=== PATIENT | female | born 1960 | race Caucasian/White ===

== ENCOUNTER → 2017-11-26 | Outpatient (CLI) | payer OTHER ==
[2017-11-26 10:27] LABS: Basophils % (A) 1 %; Eosinophils # (A) 0.2 k/uL (0-0.7); Eosinophils % (A) 5 %; HCT 43.1 % (34.0-46.0); HGB 13.8 gm/dL (11.4-16.0); Lymphocytes # (A) 1.9 k/uL (1.0-4.8); Lymphocytes % (A) 36 %; MCHC 32.1 g/dL (31.0-37.0); MCV 93.5 fL (80.0-100.0); Monocytes # (A) 0.4 k/uL (0-1.0); Monocytes % (A) 7 %; Neutrophils # (A) 2.6 k/uL (1.3-7.7); Neutrophils % (A) 48 %; Platelet Count 293 k/uL (150-450); RBC 4.61 m/uL (3.80-5.40); RDW 13.4 % (11.5-15.5); WBC 5.3 k/uL (3.8-10.6)
== END | disposition home or self-care (01) ==
LOC: LABPAT 10:05
PROVIDERS: ATTEND Obstetrics & Gynecology Obstetrics
DX: Z01.812 Encounter for preprocedural laboratory examination (principal); N95.0 Postmenopausal bleeding
CPT/HCPCS: 36415; 85025

== ENCOUNTER 2017-12-13 08:37 | Day surgery (SDC) | payer OTHER ==
[2017-12-08 17:40] VITALS: BMI 27.4
[~2017-12-13 08:37] MED LIST: DEXAMETHASONE SOD PHOSPHATE 10 MG/ML 1 ML VIAL IV ONE; HYDROmorphone 0.5 MG/0.5 ML SYRINGE IVP PRN; LACTATED RINGERS 1,000 ML IV SCH; LIDOCAINE 1% 20 ML VIAL (10MG/ML) FOR IV START INTRADERMA PRN; MIDAZOLAM 2 MG/2 ML VIAL IV PRN; ONDANSETRON 4 MG/2 ML VIAL IVP ONE; Pre Op ABX Message 1 EACH MISC MISCELLANE ONE; SCOPOLAMINE 1.5MG/72HR PATCH TRANSDERM ONE
[2017-12-13] MEDS: ACETAMINOPHEN IV (For NPO) 1,000 MG in EMPTY BAG 1 BAG IVPB ONE ×2 (10:18→10:24)
[2017-12-13] MEDS ORDERED: PROPOFOL 10 MG/ML 20 ML VIAL IV ONE (11:18)
[2017-12-13] MEDS ORDERED: KETOROLAC 30 MG/ML 1 ML VIAL ONE (11:18)
[2017-12-13] MEDS ORDERED: fentaNYL (PF) 50 MCG/ML 2 ML AMP ONE (11:18)
[2017-12-13] MEDS ORDERED: LIDOCAINE 1% INJ 10MG/ML (20 ML MDV) ONE (11:18)
[2017-12-13] MEDS ORDERED: MIDAZOLAM 2 MG/2 ML VIAL ONE (11:18)
--- NOTE | 2017-12-13 11:57 | P.OP ---
Date of Procedure: 12/13/17 Preoperative Diagnosis: Postmenopausal bleeding, inability to tolerate exam in the office secondary to atrophic vaginal tissue Postoperative Diagnosis: Same Procedure(s) Performed: Exam under anesthesia, Pap smear obtained, hysteroscopy, dilation and curettage Anesthesia: MAC Surgeon: Anais Ponce Estimated Blood Loss (ml): 10 IV fluids (ml): 200 Urine output (ml): 50 Pathology: other (Endometrial curettings) Condition: stable Disposition: PACU Indications for Procedure: Postmenopausal bleeding Operative Findings: Proliferative endometrium Description of Procedure: Patient was seen in the preoperative area and informed consent was obtained risks were reviewed patient stated understanding and wished to proceed. Patient was taken to back to the operating suite where general anesthesia was obtained without difficulty by the anesthesia department. She was then prepped and draped in the normal sterile fashion in the dorsal lithotomy position. A retrobulbar catheter was then used to drain the bladder clear yellow urine. Speculum was then used to visualize the cervix which was grasped with a single- tooth tenaculum. The endocervical canal was dilated after a Pap smear was obtained. The cervix was dilated to approximately 15-Kittitian. Hysteroscope was placed through the cervix and toward the endometrium a proliferative endometrium was noted. The hysteroscope was removed after pictures were taken under sharp curettage was performed until gritty texture was noted in all 4 quadrants of the endometrial cavity. The specimen was then sent to pathology for analysis. The single-tooth tenaculum was taken off of the anterior lip of the cervix and hemostasis was appreciated. Patient tolerated procedure well all counts were correct 2 patient to the recovery room awake and in stable condition
[2017-12-13] MEDS ORDERED: LACTATED RINGERS 1,000 ML IV ONE (12:01)
[2017-12-13 12:13] VITALS: RESP 16; TEMP 97.3
[2017-12-13 13:21] VITALS: BP 133/83; PULSE 64
== END 2017-12-13 14:07 | disposition home or self-care (01) ==
LOC: OR 08:37
PROVIDERS: ATTEND Obstetrics & Gynecology Obstetrics
DX: N84.0 Polyp of corpus uteri (principal); K21.9 Gastro-esophageal reflux disease without esophagitis; Z79.51 Long term (current) use of inhaled steroids; Z79.899 Other long term (current) drug therapy; Z88.1 Allergy status to other antibiotic agents; Z88.2 Allergy status to sulfonamides; Z91.09 Other allergy status, other than to drugs and biological substances
CPT/HCPCS: 88305; 58558; J2250; J1100; J2405; J2001; J3010; J1885; J0131; J2704

== ENCOUNTER → 2021-12-29 | Outpatient (CLI) | payer OTHER ==
--- NOTE | 2021-12-29 12:07 | XR ---
EXAMINATION TYPE: XR lumbosacral spine min 4V DATE OF EXAM: 12/29/2021 CLINICAL HISTORY: pain COMPARISON: NONE TECHNIQUE: Frontal, lateral, and oblique images of the lumbar spine are obtained. FINDINGS: There are 5 lumbar type vertebral bodies identified. The lumbar spine shows satisfactory alignment without evidence of acute fracture or dislocation. Vertebral body heights are within normal limits. [id number] multilevel degenerative disc space narrowing and spondylosis. Facet joint a rthropathy noted. Soft tissue masslike area overlying the right kidney could reflect underlying cirrh osis. Mass of other etiology not excluded. Consider ultrasound if felt to be indicated. IMPRESSION: No acute fracture or dislocation is seen in the lumbar spine.ICD 10 NO FRACTURE, INITIAL EVALUATION
== END | disposition home or self-care (01) ==
LOC: RADXRMAIN 11:44
PROVIDERS: ATTEND Family Medicine
DX: M51.36 Other intervertebral disc degeneration, lumbar region (principal); M48.061 Spinal stenosis, lumbar region without neurogenic claudication; M47.816 Spondylosis without myelopathy or radiculopathy, lumbar region
CPT/HCPCS: 72110

== ENCOUNTER → 2022-08-06 | Outpatient (CLI) | payer OTHER ==
--- NOTE | 2022-08-06 09:37 | BD ---
EXAMINATION TYPE: Axial Bone Density DATE OF EXAM: 08/06/2022 CLINICAL HISTORY: 61 years old Female. ICD-10 CODE: Z78.0 Post menopausal without HRT Height: 63.5 in Weight: 169 lbs RISK FACTORS HISTORY OF: Active: yes Postmenopausal woman: age 56 Take estrogen and/or progesterone medications: not now How lon 1/2 years MEDICATIONS: Additional Medications: vit d, allergy meds EXAM MEASUREMENTS: Bone mineral densitometry was performed using the [employer] System. Bone mineral density as measured about the Lumbar spine is: ----- L1-L4(G/cm2): 1.168 T Score Values are as follows: ----- L1: -0.6 ----- L2: -0.2 ----- L3: -0.2 ----- L4: 0.3 ----- L1-L4: -0.1 Z Score Values are as follows: ----- L1: 0.3 ----- L2: 0.7 ----- L3: 0.7 ----- L4: 1.2 ----- L1-L4: 0.8 Bone mineral density baseline Bone mineral density about the R hip (g/cm2): 0.962 Bone mineral density about the L hip (g/cm2): 0.977 T Score values are as follows: -----R Neck: -1.4 -----L Neck: -1.3 -----R Total: -0.4 -----L Total: -0.2 Z Score values are as follows: -----R Neck: -0.4 -----L Neck: -0.2 -----R Total: 0.3 -----L Total: 0.4 Bone mineral density baseline FRAX%s: The graph provided illustrates a 7.8 chance for a major osteoporotic fx and a 0.6 chance for the hips probability for fx in 10 years time. IMPRESSION: Osteopenia (T Score between -2.5 and -1). There is slightly increased risk of fracture and the patient may be considered for treatment. Re-Screen 2-5 years. NOTE: T-SCORE=SD OF THE YOUNG ADULT MEAN.
--- NOTE | 2022-08-09 07:39 | MM ---
Reason for Exam: Screening (asymptomatic). Baseline mammogram. Patient History: Menarche at age 14. Patient has no children. Postmenopausal. Risk Values: Carine 5 year model risk: 1.6%. NCI Lifetime model risk: 8.1%. Prior Study Comparison: Patient's first Mammogram. Tissue Density: The breast tissue is heterogeneously dense. This may lower the sensitivity of mammography. Findings: Analyzed By CAD. There are benign-appearing round and dystrophic calcifications throughout the bilateral breasts identified. Benign-appearing bilateral axillary lymph nodes are identified. No suspicious focal mass or distortion in either breast. Overall Assessment: Benign, BI-RAD 2 Management: Screening Mammogram of both breasts in 1 year. A clinical breast exam by your physician is recommended on an annual basis and results should be correlated with mammographic findings. Electronically signed and approved by: Robin Mayer M.D.
== END | disposition home or self-care (01) ==
LOC: RADBDWWP 08:32
PROVIDERS: ATTEND Family Medicine
DX: Z12.31 Encounter for screening mammogram for malignant neoplasm of breast (principal); M85.89 Other specified disorders of bone density and structure, multiple sites; Z78.0 Asymptomatic menopausal state
CPT/HCPCS: 77067; 77080

== ENCOUNTER → 2023-08-15 | Outpatient (CLI) | payer OTHER ==
--- NOTE | 2023-08-17 09:58 | MM ---
Reason for Exam: Screening (asymptomatic). Last screening mammogram was performed 12 month(s) ago. Patient History: Menarche at age 14. Patient has no children. Postmenopausal. Estrogen for 2 years from age 58 until age 60. Maternal grandmother had breast cancer, age 80. Risk Values: Carine 5 year model risk: 1.6%. NCI Lifetime model risk: 7.9%. Prior Study Comparison: 08/06/2022 Bilateral MG screening mammo w CAD, [facility]. Tissue Density: The breasts are heterogeneously dense, which may obscure small masses. Findings: Analyzed By CAD. There are grouped calcifications seen on the CC view within the left breast centrally. Recommend spot magnification CC view and true lateral view. No dominant mass or architectural distortion. Approximately 5.8 cm from the nipple line. Overall Assessment: Incomplete: need additional imaging evaluation, BI-RAD 0 Management: Diagnostic Mammogram of the left breast. . Patient should continue monthly self-breast exams. A clinical breast exam by your physician is recommended on an annual basis. This exam should not preclude additional follow-up of suspicious palpable abnormalities. Note on Carine scores and lifetime risk: 1. A Carine score greater than 3% is considered moderate risk. If this is the case, consider specialist referral to assess eligibility for a risk reducing agent. 2. If overall lifetime risk for the development of breast cancer is 20% or higher, the patient may qualify for future screening with alternating mammogram and breast MRI. Electronically signed and approved by: Pawan Veras M.D. Radiologis
== END | disposition home or self-care (01) ==
LOC: RADMAMWWP 08:54
PROVIDERS: ATTEND Family Medicine
DX: Z12.31 Encounter for screening mammogram for malignant neoplasm of breast (principal); Z80.3 Family history of malignant neoplasm of breast; Z78.0 Asymptomatic menopausal state
CPT/HCPCS: 77067

== ENCOUNTER → 2023-08-18 | Outpatient (CLI) | payer OTHER ==
--- NOTE | 2023-08-18 14:11 | MM ---
Reason for Exam: Additional evaluation requested from abnormal screening. Last screening mammogram was performed less than 1 month ago. Patient History: Menarche at age 14. Patient has no children. Postmenopausal. Estrogen for 2 years from age 58 until age 60. Maternal grandmother had breast cancer, age 80. Risk Values: Carine 5 year model risk: 1.6%. NCI Lifetime model risk: 7.9%. Prior Study Comparison: 08/06/2022 Bilateral MG screening mammo w CAD, [facility]. 08/15/2023 Bilateral MG screening mammo w CAD, [facility]. Tissue Density: Left: The breasts are heterogeneously dense, which may obscure small masses. Findings: Analyzed By CAD. The pattern is symmetrical. There are punctate calcifications present bilaterally. These have a slight increase in number and density compared to the prior exam. Suspicious cluster of microcalcifications is not evident. Given the apparent change short-term follow-up bilateral breast recommended. Overall Assessment: Probably benign, BI-RAD 3 Management: Diagnostic Mammogram of both breasts in 6 months. A negative mammogram report should not preclude additional follow up of suspicious palpable abnormalities. Patient should continue monthly self breast exam. A clinical breast exam by your physician is recommended on an annual basis and results should be correlated with mammographic findings. Electronically signed and approved by: Yosef Lopez D.O. Radiologis
== END | disposition home or self-care (01) ==
LOC: RADMAMWWP 13:27
PROVIDERS: ATTEND Family Medicine
DX: R92.332 Mammographic heterogeneous density, left breast (principal); R92.1 Mammographic calcification found on diagnostic imaging of breast; Z80.3 Family history of malignant neoplasm of breast; Z78.0 Asymptomatic menopausal state
CPT/HCPCS: 77065; G0279; 77061

== ENCOUNTER → 2024-03-06 | Outpatient (CLI) | payer MEDICARE ==
--- NOTE | 2024-03-06 11:14 | MM ---
Reason for Exam: Follow-up at short interval from prior study. Last screening mammogram was performed 7 month(s) ago. Patient History: Menarche at age 14. Patient has no children. Postmenopausal. Estrogen for 2 years from age 58 until age 60. Maternal grandmother had breast cancer, age 80. Risk Values: Carine 5 year model risk: 1.7%. NCI Lifetime model risk: 7.7%. Prior Study Comparison: 08/06/2022 Bilateral MG screening mammo w CAD, [facility]. 08/15/2023 Bilateral MG screening mammo w CAD, [facility]. 08/18/2023 Left MG 3D work up w/cad LT, [facility]. Tissue Density: There are scattered areas of fibroglandular density. Findings: Analyzed By CAD. Benign-appearing calcifications No new suspicious masses, calcifications or distortions. Overall Assessment: Benign, BI-RAD 2 Management: Screening Mammogram of both breasts in 1 year. Results were given to the patient verbally at the time of exam. Patient should continue monthly self-breast exams. A clinical breast exam by your physician is recommended on an annual basis. This exam should not preclude additional follow-up of suspicious palpable abnormalities. Note on Carine scores and lifetime risk: 1. A Carine score greater than 3% is considered moderate risk. If this is the case, consider specialist referral to assess eligibility for a risk reducing agent. 2. If overall lifetime risk for the development of breast cancer is 20% or higher, the patient may qualify for future screening with alternating mammogram and breast MRI. [facility], , 03/06/2024 11:11 AM. Electronically signed and approved by: Freddie Leger DO
== END ==
LOC: RADMAMWWP 10:43
PROVIDERS: ATTEND Family Medicine
DX: R92.8 Other abnormal and inconclusive findings on diagnostic imaging of breast
CPT/HCPCS: 77062; 77066

== ENCOUNTER → 2024-12-13 | Outpatient (CLI) | payer MEDICARE ==
--- NOTE | 2024-12-13 22:33 | CT ---
EXAMINATION TYPE: CT abdomen wo/w con DATE OF EXAM: 12/13/2024 12:53 PM COMPARISON: None. CLINICAL INDICATION: Female, 64 years old with history of R93.429 ABNORMAL RADIOLOGIC FINDINGS ON DX IMAGING, CYST ON RT KIDNEY TECHNIQUE: Axial images were obtained from above the diaphragm to the iliac crests in the axial plane at 5 mm thick sections. Reconstructed images are reviewed on the computer in the coronal plane. CONTRAST: 100 mL of Isovue 300. Study performed with Oral Contrast DLP: 730.5 mGycm, Automated exposure control for dose reduction was used. FINDINGS: Limited CT sections are obtained the lung bases. The lung bases are clear. CT ABDOMEN: Liver: Cyst in the posterior inferior right lobe liver Spleen: Normal Pancreas: Normal Adrenal glands: The adrenal glands are normal. Gallbladder: Normal Kidneys: No masses are evident. No hydronephrosis is present. There is knee 0.3 cm cyst inferior po le right kidney. Delayed images were obtained through the kidneys, which remain unremarkable. Aorta: Vascular calcification is within the aorta. Inferior vena cava: Normal. Loops of bowel within the abdomen and upper pelvis are normal. There are loops of bowel which are incompletely distended or lack oral contrast limiting their evaluation. IMPRESSION: 1. Large right renal cyst. 2. Suspected hepatic cyst. Follow-up for stability can be performed. [facility], Workstation: [id number], 12/13/2024 10:31 PM
== END | disposition home or self-care (01) ==
LOC: RADCTMAIN 11:23
PROVIDERS: ATTEND Family Medicine
DX: N28.1 Cyst of kidney, acquired (principal); R93.429 Abnormal radiologic findings on diagnostic imaging of unspecified kidney
CPT/HCPCS: 74170; Q9967